=== PATIENT | male | born 1955 | race Caucasian/White ===

== ENCOUNTER 2016-05-09 17:13 | Emergency (ER) | payer OTHER ==
[~2016-05-09] VITALS: Ht 185.4 cm; Wt 111.0 kg
[2016-05-09 17:35] VITALS: BP 142/80
== END 2016-05-09 20:28 | disposition home or self-care (01) ==
LOC: EME 17:13
PROC: 0HQGXZZ Repair Left Hand Skin, External Approach (ICD-10-PCS; principal; 2016-05-09)
DX: S61.210A Laceration without foreign body of right index finger without damage to nail, initial encounter (principal)
CPT/HCPCS: 99281; 99284